=== PATIENT | male | born 1960 ===

== ENCOUNTER → 2018-10-11 | Outpatient (CLI) | payer OTHER | END | disposition home or self-care (01) | LOC: NUCLEAR 07:30 | DX: K80.10 Calculus of gallbladder with chronic cholecystitis without obstruction (principal) | CPT/HCPCS: 78227; A9537 ==

== ENCOUNTER → 2019-02-01 | Day surgery (SDC) | payer OTHER | END | disposition home or self-care (01) | LOC: ADM 01-25 13:00 → AMB-ENDOS 05:18 | DX: K57.30 Diverticulosis of large intestine without perforation or abscess without bleeding (principal); K92.1 Melena; K64.1 Second degree hemorrhoids ==